=== PATIENT | female | born 1930 | race Caucasian/White ===

== ENCOUNTER 2017-01-14 11:27 | Inpatient (IN) ==
[2017-01-14] MEDS ORDERED: VANCOMYCIN 1 GM/NS 1 GM/250 ML IVPB IV ONE (11:44)
[2017-01-14] MEDS ORDERED: NS 500 ML IV ONE (11:44)
--- NOTE | 2017-01-14 12:30 | Diag Imaging Result Doc PS360 ---
CHEST-2 VIEWS - 01/14/2017 INDICATION: cellulitis TECHNIQUE: COMPARISON: 06/12/2016 FINDINGS: The lungs are normally expanded and clear. Heart size and mediastinal contours are normal. No pneumothorax or pleural effusion. IMPRESSION: Negative exam. Electronically signed by Kosta Khan 01/14/2017 12:27 PM
[2017-01-14 13:03] LABS: MANUAL DIFF NEEDED? NO
[2017-01-14 13:09] LABS: BASO% 0.3 % (0.0-0.8); EOS# 0.04 X1000 (0.0-0.7); EOS% 0.5 % (0.0-10.0); HEMATOCRIT 36.8 % (37.0-47.0); HEMOGLOBIN 12.1 g/dL (12.0-16.0); LYMPH# 0.76 X1000 (1.2-3.4); MCH 31.6 PG (27-31); MCHC 32.9 g/dL (33-37); MCV 96.1 FL (81-99); MONO% 7.9 % (1.7-9.3); MPV 9.5 FL (7.4-10.4); NEUT% 81.3 % (42.2-75.2); PLT 260 X1000 (130-400); RBC 3.83 XMIL (4.2-5.4)
[2017-01-14 13:32] LABS: AGAP 14; ALBUMIN 4.2 g/dL (3.5-5.0); ALKALINE PHOSPHATASE 111 U/L (32-104); BUN 21 mg/dL (8-22); CALCIUM 9.3 mg/dL (8.8-10.2); CHLORIDE 104 mmol/L (98-107); COSMO 288; GOT 20 U/L (10-30); GPT 12 U/L (10-36); POTASSIUM 3.8 mmol/L (3.5-5.1); SODIUM 143 mmol/L (136-145); TCO2 25 mmol/L (25-35); TOTAL BILIRUBIN 0.69 mg/dL (0.20-1.00); TOTAL PROTEIN 6.7 g/dL (6.3-8.3)
--- NOTE | 2017-01-14 14:07 | PROVIDER DOCUMENTATION ---
This chart was entered by Crystal Bridges Scribe, acting as scribe for Nicol Grant MD. HPI-General Adult - General Chief Complaint: General Adult Stated Complaint: SENT BY MD FOR FURTHER EVAL/L LEG Time Seen by Provider: 01/14/17 11:36 Source: patient Allergies/Adverse Reactions: Patient Allergies Allergy/AdvReac Type Severity Reaction Status Date / Time codeine Allergy Unknown DIZZINESS Verified 01/14/17 12:18 promethazine HCl * Allergy Unknown Unknown Verified 01/14/17 12:18 [From Phenergan] Home Medications: Home Medication List Medication Instructions Recorded Confirmed Last Taken Type Losartan [Cozaar] 50 mg PO DAILY #30 tablet 01/26/15 01/14/17 01/14/17 Rx Pantoprazole [Protonix] 40 mg PO DAILY@0700 #0 tablet 01/26/15 01/14/17 Rx Amlodipine [Norvasc] 5 mg PO DAILY #30 tablet 06/12/16 01/14/17 01/14/17 Rx Bisacodyl [Dulcolax] 10 mg SD QHS #10 supp 06/12/16 01/14/17 Unknown Rx Oxycodone/APAP 5 mg/325 mg 1 each PO Q6H PRN #10 tablet 06/12/16 01/14/17 Unknown Rx [Percocet-5] - History of Present Illness -Gen Adult Nature of Presenting Problems: 86 Y/O F presents to the ER with the complain of L leg swelling with redness and feeling warm. Pt states that she was sent directly from her PCP office for possible admissions. pt states that she takes antibiotics since Thursday for her leg and it does not help at all. pt states she feels burning sensation in her L leg. Pt denies any CP or SOB. Location of Pain/Injury: reports: lower extremity (L leg swelling/warm/Red) Onset/Duration: reports: 3 days ago Timing: reports: still present Associated Symptoms: reports: swelling/mass in abdomen (L leg), other (L leg warmness and redness) Review of Systems - Adult - REVIEW OF SYSTEMS - ADULT Constitutional: denies: chills, fever Eyes: reports: no symptoms reported Ears, Nose, Mouth & Throat: reports: no symptoms reported Cardiovascular: reports: heart murmur. denies: palpitations Respiratory: reports: no symptoms reported Gastrointestinal: denies: abdominal pain, nausea, vomiting Genitourinary: reports: no symptoms reported Musculoskeletal: reports: other (L leg swelling, warm and Redness). denies: back pain Integumentary: reports: other (L leg redness). denies: skin sores/ulcer Neurological: reports: no symptoms reported Psychiatric: reports: no symptoms reported Endocrine: reports: no symptoms reported Hematologic/Lymphatic: reports: no symptoms reported Allergic/Immunologic: reports: no symptoms reported All Other Systems: Reviewed and Negative Past History - Adult - PAST MEDICAL HISTORY-ADULT Review of Records: reports: Old Records Reviewed, Nursing Assessment Review - IMMUNIZATION STATUS Childhood Immunizations: See Nurse Assessment Flu Vaccine: See Nurse Assessment Physical Exam-General - PHYSICAL EXAM-ADULT Initial Vital Signs Reviewed: Yes - CONSTITUTIONAL General Appearance: appears well, alert - EYES Eyes: PERRL/EOMI, pink conjunctivae - NECK Neck: non-tender, full range of motion - RESPIRATORY Respiratory: lungs clear, normal breath sounds - CARDIOVASCULAR Cardiovascular: other (heart murmur). negative: no edema - MUSCULOSKELETAL Back Exam: no CVA tenderness, no vertebral tenderness Extremity: erythema, swelling (L leg), tenderness (L leg), other (L leg redness and warm) - SKIN Integumentary: normal color, warm/dry - NEUROLOGIC Neurologic: grossly normal, no motor/sensory deficits - PSYCHIATRIC Psych/Mental Status: normal mood/affect, normal thought content, normal thought process, oriented x 3 Progress - PLAN OF CARE/RESULTS Progress/Plan/Lab Results: Vital Signs - 8 hr 01/14/17 11:33 Temperature 98.9 F Pulse Rate 88 Respiratory Rate 18 Blood Pressure 164/81 O2 Sat by Pulse Oximetry 100 Orders Category Date Time Status IV Insertion ORDERED Care 01/14/17 11:44 Active BLOOD CULTURE [BLDCUL] Stat Lab 01/14/17 11:44 Uncollected CBC WITH ELECTRONIC DIFF [HEME] Stat Lab 01/14/17 11:44 Uncollected COMPREHENSIVE METABOLIC PANEL [CHEM] Stat Lab 01/14/17 11:44 Uncollected LACTATE, PLASMA [CHEM] Stat Lab 01/14/17 11:44 Uncollected 0.9% Sodium Chloride Inj [Ns] 500 ml Med 01/14/17 11:44 Active IV 999 mls/hr Vancomycin 1 gm/Ns Med 01/14/17 11:44 Active 1 gm in 250 ml IV NOW [address] de la torre who states he did an outpt ultrasound for dvt which was neg and she is not getting better on po medications so he wants her admitted to the hospitalist. hospitalist contacted will accept the patient for admission. Result Diagrams: 01/14/17 12:00 01/14/17 12:00 - XRAY 1 XRAY: Bilateral XRAY Study: Chest Impression: Normal XRAY Interpretation: negative by Radiologist Departure - Departure Date of Disposition Decision: 01/14/17 Time of Disposition Decision: 14:06 DIAGNOSIS: Cellulitis Qualifiers: Site of cellulitis: extremity Site of cellulitis of extremity: lower extremity Laterality: left Qualified Code(s): L03.116 - Cellulitis of left lower limb Disposition: ADMITTED INPATIENT 09 Certified Medical Emergency: Emergent Condition: Good Referrals and Follow-Ups: Navin De La Torre MD [Primary Care Provider] - - Critical Care Note This patient required my direct & personal management of CC.: No This chart was documented by the indicated scribe, (Crystal Bridges Scribe) and accurately reflects the services I performed and decisions made by me, Nicol Grant MD, as attested by the provider's signature.
[2017-01-14] MEDS ORDERED: VANCOMYCIN IV PER PHARMACY MISC SCH (15:30)
[2017-01-14] MEDS: ZOSYN 3.375 GM/NS 3.375 GM/50 ML IVPB IV SCH ×2 (15:35→20:53)
--- NOTE | 2017-01-14 17:53 | HISTORY AND PHYSICAL ---
PRIMARY CARE PROVIDER: Dr. Navin De La Torre. CHIEF COMPLAINT: Left lower extremity redness, swelling and pain. HISTORY OF PRESENT ILLNESS: Ms. Gaines is an 86-year-old female who is in no acute distress. She has a history of GERD, peptic ulcer disease, hypertension, and chronic back pain, who apparently for the last week and a half has been noticing swelling, redness, heat and pain in the lower extremity. She denies having any kind of wounds to that leg. She went to Dr. De La Torre on Thursday, who then started her on antibiotics. He also performed a lower extremity ultrasound that ruled out DVT. He saw her once again today. The lower extremity cellulitis has not improved and she has been admitted for IV antibiotic therapy for cellulitis. Other complaints include the occasional nausea and pain around her neck. We will transfer for [place] IV therapy. PAST MEDICAL HISTORY: Tongue cancer, hypertension, peptic ulcer disease over 3 years ago, she had to have 3 packed red blood cells for it, and GERD. SURGICAL HISTORY: Hysterectomy, cholecystectomy, tonsillectomy, tongue cancer excision, and back surgery. SOCIAL HISTORY: Denies tobacco, alcohol or illicit drug use. She is and lives alone. The son is at the bedside. FAMILY HISTORY: Noncontributory. REVIEW OF SYSTEMS: Ten point review of systems were complete and all were negative except for those mentioned in the above HPI. ALLERGIES: Codeine and Phenergan. HOME MEDICATIONS: Norvasc 5 mg p.o. daily. Dulcolax 10 mg per rectum at bedtime. Cozaar 50 mg p.o. daily. Percocet 5, 1 tab p.o. every 6 hours p.r.n. Protonix 40 mg p.o. daily. PHYSICAL EXAMINATION: VITAL SIGNS: Temperature is 98.9 degrees, heart rate 88, respiratory rate 18, blood pressure 164/81, O2 saturation 100% on room air. She is 4 feet 8-1/2 inches tall, 102 pounds, BMI is 22.5. GENERAL: Ms. Gaines is an 86-year-old female. She is in no acute distress. Able to answer questions appropriately. HEENT: Atraumatic, normocephalic. Pupils equal, round, reactive to light. Extraocular movements intact. NECK: No JVD or carotid bruits noted. CARDIOVASCULAR: S1, S2. Regular rate and rhythm. No rubs, gallops, murmurs. PULMONARY: Clear to auscultation. Bilateral breath sounds. No accessory muscle use or work of breathing noted. GASTROINTESTINAL: Soft, nontender, nondistended. Positive bowel sounds x4. EXTREMITIES: Left lower extremity with swelling, redness, heat from the just below the knee to about the level of the ankle. No open wounds noted. +2 dorsalis pedal pulses, +2 radial pulses. No swelling or edema of the right leg noted. SKIN: Warm, dry, intact except for that mentioned about the left lower extremity. NEUROLOGIC: Alert and oriented x4. Moves all extremities equally. LABORATORY DATA: White blood cells 7000, hemoglobin 12, hematocrit 36, platelet count 260,000. Sodium 143, potassium 3.8, BUN 21, creatinine 0.8, glucose 97, calcium 9.3, bilirubin 0.69. AST 20, ALT 12, lactate 0.9. IMAGING: Chest x-ray: Negative exam. ASSESSMENT AND PLAN: 1. Left lower extremity cellulitis, failed outpatient treatment. IV vancomycin and Zosyn has been started. Blood cultures have been ordered. Lower extremity ultrasound of the left leg was negative for deep venous thrombosis on the , just 3 days ago. 2. Hypertension. Continue home medications. 3. Peptic ulcer disease and gastroesophageal reflux disease. Continue Protonix. 4. Chronic pain. Continue home medications. 5. Deep venous thrombosis prophylaxis Lovenox. 6. Gastrointestinal prophylaxis proton pump inhibitor. Dictated by TIFFANIE Barker for Shyam Taylor MD cc: TIFFANIE Barker MD Michael C. Donham, MD
[2017-01-14] MEDS ORDERED: TYLENOL PO PRN (20:22)
[2017-01-14] MEDS ORDERED: PERCOCET-5 PO PRN (20:22)
[2017-01-14] MEDS ORDERED: NS 1,000 ML IV SCH (20:22)
[2017-01-14] MEDS ORDERED: ZOFRAN IV PRN (20:22)
[2017-01-14] MEDS: DULCOLAX PR SCH (22:33)
[2017-01-15] MEDS: ZOSYN 3.375 GM/NS 3.375 GM/50 ML IVPB IV SCH ×4 (03:36→22:13)
[2017-01-15 05:00] LABS: BILIRUBIN URINE NEGATIVE (NEGATIVE); CLARITY CLEAR (CLEAR); COLOR YELLOW; GLUCOSE URINE NEGATIVE (NEGATIVE); URINE SOURCE CLEAN CATCH
[2017-01-15 05:01] LABS: BLOOD URINE NEGATIVE (NEGATIVE); LEUKOCYTES URINE TRACE (NEGATIVE); NITRITE URINE NEGATIVE (NEGATIVE); PROTEIN URINE NEGATIVE (NEGATIVE); UROBILINOGEN URINE NORMAL
[2017-01-15 05:22] LABS: URINE CULTURE PL NEEDED? YES; URINE EPITHELIAL CELLS <10 /HPF (<10); URINE RBC <10 /HPF (<10); URINE WBC <10 /HPF (<10)
[2017-01-15] MEDS: PROTONIX PO SCH (06:06)
[2017-01-15 06:25] LABS: MANUAL DIFF NEEDED? NO
[2017-01-15 06:39] LABS: BASO% 0.4 % (0.0-0.8); EOS# 0.08 X1000 (0.0-0.7); EOS% 1.7 % (0.0-10.0); HEMATOCRIT 32.7 % (37.0-47.0); HEMOGLOBIN 10.5 g/dL (12.0-16.0); IMM GRAN# 0.01 X1000 (0.0-0.04); IMM GRAN% 0.2 % (0.0-0.5); LYMPH# 0.64 X1000 (1.2-3.4); LYMPH% 13.3 % (20.5-51.1); MCH 30.9 PG (27-31); MCHC 32.1 g/dL (33-37); MCV 96.2 FL (81-99); MONO# 0.48 X1000 (0.11-0.59); MPV 9.2 FL (7.4-10.4); NEUT% 74.4 % (42.2-75.2); PLT 249 X1000 (130-400)
[2017-01-15 06:57] LABS: INR 1.07 (0.86-1.15); PROTIME 14.2 Seconds (12.1-15.5)
[2017-01-15 06:58] LABS: PTT PL 33.4 Seconds (22.6-43.9)
[2017-01-15 07:11] LABS: AGAP 13; ALBUMIN 3.5 g/dL (3.5-5.0); ALKALINE PHOSPHATASE 94 U/L (32-104); BUN 17 mg/dL (8-22); CALCIUM 8.5 mg/dL (8.8-10.2); CHLORIDE 108 mmol/L (98-107); COSMO 285; GOT 17 U/L (10-30); GPT 9 U/L (10-36); MAGNESIUM 2.1 mg/dL (1.5-2.7); SODIUM 143 mmol/L (136-145); TCO2 22 mmol/L (25-35); TOTAL PROTEIN 5.6 g/dL (6.3-8.3)
[2017-01-15] MEDS: COZAAR PO SCH (08:13)
[2017-01-15] MEDS: LOVENOX SUBQ SCH (08:13)
[2017-01-15] MEDS: NORVASC PO SCH (08:13)
--- NOTE | 2017-01-15 20:26 | PROGRESS NOTE ---
DATE: 01/15/2017 SUBJECTIVE: Patient says her left lower extremity is much improved today. She is having much less redness and swelling, much less pain. States that she has been off of it for a day before coming to the ER after being admitted last night. She has not been up and about and her leg is also feeling much better. OBJECTIVE: Vital signs: Temperature 98, pulse 77, respiratory rate 18, blood pressure 119/58, saturation 97% on room air. General: Patient is awake, alert, currently in no real respiratory distress. Speech is regular. Memory intact. Neck: Supple. CARDIOVASCULAR: Regular rate. Chest: Relatively clear, nonlabored. No wheezing. Abdomen: Soft. Extremities: Moves all extremities. Neurologic: There are no changes. Patient is sitting on the side of the bed. She is awake, alert, pleasant to talk with. Extremities: Her left lower extremity has trace edema. Skin: Warm, dry and intact. Still has some redness from 4 cm above the ankle to just below the ankle. Much improved. PLAN: We will continue IV vancomycin and Zosyn. She has had a great improvement. We will continue her home medications. Continue pain medications as needed. Further orders as needed. Hopefully home soon. cc: Danilo Sahu MD
[2017-01-15] MEDS: DULCOLAX PR SCH (22:13)
[2017-01-16] MEDS: ZOSYN 3.375 GM/NS 3.375 GM/50 ML IVPB IV SCH ×5 (04:33→20:18)
[2017-01-16] MEDS: PROTONIX PO SCH ×2 (05:59→08:16)
[2017-01-16] MEDS: LOVENOX SUBQ SCH (08:16)
[2017-01-16] MEDS: NORVASC PO SCH (08:17)
[2017-01-16] MEDS: COZAAR PO SCH (08:17)
--- NOTE | 2017-01-16 10:40 | PROGRESS NOTE ---
DATE: 01/16/2017 SUBJECTIVE: The patient notes that the left lower extremity is actually hurting a little bit more this morning than it had been last night. It is uncertain if it is any more red than it was before. Denies any redness anywhere else. Denies any pain anywhere else. Notes that overall she is feeling fine. Denies any chest pains or GI or issues. OBJECTIVE: Temperature 98.0 degrees, pulse 89, respiratory rate 16, blood pressure 129/63, saturation 97% on room air.General: Patient is awake, alert, and currently in no respiratory distress. She is pleasant to talk with. She is lying in bed, talking on the phone. HEENT: Normocephalic, atraumatic. ROSALIA. Neck: Supple. Cardiovascular: Regular rate. Chest: Clear. Abdomen: Soft. Extremities: Moves all extremities. Neurologic: No changes. Skin: She is noted to have erythema of her mid alvarado down to her left ankle. This is actually a little bit less on exam than it was last night. It is still warm to the touch. She actually has wrinkles, which she did not last night. ASSESSMENT: 1. Left lower extremity cellulitis. 2. Hypertension. 3. Peptic ulcer disease. 4. Chronic pain. PLAN: We will stop vancomycin at this point, continue Zosyn, continue her home medications, and will follow. cc: Danilo Sahu MD
[2017-01-16] MEDS ORDERED: VANCOMYCIN 800 MG in NS 250 ML IV SCH (12:00)
[2017-01-16] MEDS: DULCOLAX PR SCH (20:09)
[2017-01-17] MEDS: ZOSYN 3.375 GM/NS 3.375 GM/50 ML IVPB IV SCH ×2 (03:21→09:19)
[2017-01-17] MEDS: PROTONIX PO SCH (06:24)
[2017-01-17] MEDS: NORVASC PO SCH (09:19)
[2017-01-17] MEDS: LOVENOX SUBQ SCH (09:19)
[2017-01-17] MEDS: COZAAR PO SCH (09:19)
[2017-01-17] MEDS: CULTURELLE PO SCH ×2 (10:18→20:00)
[2017-01-17] MEDS: KEFLEX PO SCH ×2 (10:18→21:05)
[2017-01-17 10:49] LABS: OCCULT BLOOD 1 NEGATIVE (NEGATIVE)
--- NOTE | 2017-01-17 11:22 | PROGRESS NOTE ---
DATE: 01/17/2017 SUBJECTIVE: The patient notes the pain and swelling in her left lower extremity have improved, although she is complaining of diarrhea. Denies any current abdominal pain, but states she has frequent episodes of diarrhea. Denies chest pains or palpitations. Denies any fevers or chills. OBJECTIVE: Vital Signs: Temperature 98 degrees, pulse 70, respiratory rate 16, blood pressure 126/66, and saturation 99% on room air. General: Patient is awake, alert, lying in bed. She is currently in no respiratory distress. She is pleasant to talk with. Neck: Supple. Cardiovascular: Regular rate. Chest: Clear. Abdomen: Soft, nondistended. Positive bowel sounds. Extremities: Moves all extremities. Neurologic: No changes. ASSESSMENT: 1. Diarrhea. The patient has recently been on antibiotics, but I am not sure that this is the cause of her diarrhea, as she has a long-standing history of constipation and was given an enema. Since that time, she has been having frequent episodes of diarrhea. 2. Left lower extremity cellulitis, improving. Will stop her Zosyn and go to Keflex today. 3. Hypertension, stable. PLAN: Hopefully, the patient can be discharged home later this afternoon. We will check. We will give her 1 dose of Lomotil this morning. We will check a Clostridium difficile toxin on her next stool. We will continue to follow. If her diarrhea improves and her Clostridium difficile is negative, then we certainly can discharge home later. cc: Danilo Sahu MD
--- NOTE | 2017-01-17 13:18 | Diag Imaging Result Doc PS360 ---
KUB ABDOMEN - 01/17/2017 INDICATION: pain TECHNIQUE: COMPARISON: None FINDINGS: There is a nonobstructive bowel gas pattern. No free air or abdominal calcifications. There is severe osteoarthritis of the left hip. IMPRESSION: No acute disease. Electronically signed by Kosta Khan 01/17/2017 1:15 PM
[2017-01-17] MEDS: IMODIUM PO PRN (20:00)
[2017-01-17] MEDS: DULCOLAX PR SCH (21:58)
[2017-01-18] MEDS: PROTONIX PO SCH (06:27)
[2017-01-18] MEDS: IMODIUM PO PRN (07:47)
[2017-01-18] MEDS: LOVENOX SUBQ SCH (07:47)
[2017-01-18] MEDS: COZAAR PO SCH ×2 (07:48→08:35)
[2017-01-18] MEDS: CULTURELLE PO SCH ×2 (07:48→08:35)
[2017-01-18] MEDS: NORVASC PO SCH ×2 (07:48→08:35)
[2017-01-18] MEDS: KEFLEX PO SCH (10:24)
[2017-01-18 13:44] VITALS: BP 137/78
--- NOTE | 2017-01-19 06:55 | DISCHARGE SUMMARY ---
ADMISSION DATE: 01/14/2017 DISCHARGE DATE: 01/18/2017 PRIMARY CARE PHYSICIAN: Navin De La Torre MD ADMISSION DIAGNOSES: 1. Left lower extremity cellulitis with failed outpatient treatment. 2. Hypertension. 3. Gastroesophageal reflux disease. 4. Chronic pain. DISCHARGE DIAGNOSES: 1. Left lower extremity cellulitis, improved. 2. Hypertension. 3. Gastroesophageal reflux disease. 4. Chronic pain. SUMMARY OF FINDINGS: This is an 86-year-old female, who presented from her primary care physician's office after having last week swelling, red, heat, and pain in her left lower extremity. No wounds to that leg. She was placed on antibiotics on January 12. A lower extremity ultrasound was done in the office also to rule out a DVT. He saw her again in the office on the day of admission and felt that she had not improved and so she was a direct admit to the hospitalist service for failed outpatient treatment of the left lower lobe extremity cellulitis. Placed on IV vancomycin and Zosyn. The ultrasound of the left leg was negative for DVT on the , so we did not repeat that. Her white cells have remained normal. She developed some diarrhea during her treatment. We did stool for occult blood that was negative and a stool for clostridium difficile toxin that was negative. She is much improved and was changed over to p.o. Keflex yesterday. Has done well with that. The pain and swelling in her leg and erythema are improved and it is felt that she can safely be discharged home today. She will be discharged home with a prescription for Keflex 500 mg one p.o. b.i.d., #14 with no refills, and a prescription for Culturelle 1 p.o. b.i.d. #60, no refills. She will continue her home medications of Norvasc 5 mg p.o. daily, Losartan 50 mg p.o. daily, Protonix 40 mg p.o. daily, Dulcolax 10 mg per rectally at bedtime, and her Percocet 5 one p.o. q.6 hours p.r.n. FOLLOWUP: She will follow up with Dr. De La Torre in the next 1-2 weeks and call his office for an appointment. All discharge instructions have been reviewed with the patient. She verbalizes understanding. TIME SPENT: A 35 minute discharge. Dictated by TIFFANIE Garcia for Danilo Sahu MD cc: TIFFANIE Garcia MD Michael C. Donham, MD
== END 2017-01-18 14:32 | disposition home or self-care (01) ==
LOC: ED 11:27 → SUATTDRO 15:39 → P.MEDSURG 15:39
PROVIDERS: ATTEND Family Medicine